=== PATIENT | male | born 1950 | race Caucasian/White ===

== ENCOUNTER 2018-07-17 06:49 | Inpatient (IN) | payer MEDICARE ==
[2018-07-17] MEDS ORDERED: Heparin for STEMI(*) 5,000 UNITS/ML 1 ML VIAL IV ONE (07:15)
[2018-07-17] MEDS ORDERED: Ticagrelor* 90 MG TAB PO ONE (07:15)
[2018-07-17] MEDS ORDERED: nitroGLYCERIN DRIP* 25,000 MCG/250 ML BTL ONE (07:20)
[2018-07-17] MEDS ORDERED: Lidocaine 1% INJ* 10 MG/ML 30 ML SDV ONE (07:20)
[2018-07-17] MEDS ORDERED: Heparin 2 UNITS/ML IVPREMIX* 2,000 ML IV ONE (07:20)
[2018-07-17] MEDS ORDERED: VERAPAMIL 2.5 MG/ML 2 ML VIAL ** 5 mg/2 ml ONE (07:20)
[2018-07-17] MEDS ORDERED: Iohexol 350 (CONTRAST) 200 ML MDV IV ONE ×2 (07:20→08:38)
[2018-07-17] MEDS ORDERED: Heparin(*) 1000 UNIT/ML 10 ML VIAL CATH LAB IV ONE (07:20)
[2018-07-17 07:42] LABS: ABS Basophils 0.1 10^3/ul (0-0.2); ABS Eosinophils 0.2 10^3/ul (0-0.6); ABS Lymphocytes 2.1 10^3/ul (1.0-4.8); ABS Monocytes 0.7 10^3/ul (0-0.8); ABS Neutrophils 6.4 10^3/ul (1.5-7.7); ABS Nucleated RBC 0 10^3/ul; Eosinophil % 1.6 %; Hematocrit 46 % (42-52); Hemoglobin 15.6 g/dl (14.0-18.0); Lymphocyte % 21.8 %; Mean Corpuscular HGB Conc 34 g/dl (31-36); Mean Corpuscular Hemoglobin 33 pg (27-31); Mean Corpuscular Volume 97 fL (80-94); Mean Platelet Volume 7.2 fL (7.4-10.4); Nucleated Red Blood Cells % 0.1; Platelet Count 317 10^3/ul (150-450); Red Blood Count 4.71 10^6/ul (4.00-5.40); Red Cell Distribution Width 14 % (10.5-15); White Blood Count 9.4 10^3/ul (3.5-10.8)
[2018-07-17] MEDS ORDERED: Midazolam* 1 MG/ML 10 ML VIAL (10 MG) ONE (07:47)
[2018-07-17 07:48] LABS: Activated Partial Thrombo Time 29.4 seconds (26.0-36.3); INR 0.89 (0.77-1.02)
[2018-07-17] MEDS ORDERED: Bivalirudin(*) 250 MG VIAL ONE (07:54)
[2018-07-17 07:59] LABS: Albumin/Globulin Ratio 1.3 (1-3); Globulin 3.1 g/dL (2-4); Magnesium 1.9 mg/dL (1.9-2.7); Potassium 3.8 mmol/L (3.5-5.0); Total Bilirubin 0.4 mg/dL (0.2-1.0); Total Protein 7.1 g/dL (6.4-8.9)
[2018-07-17] MEDS ORDERED: Acetaminophen TAB* 325 MG PO PRN (09:17)
[2018-07-17] MEDS ORDERED: Docusate CAP* 100 MG PO PRN (09:17)
[2018-07-17] MEDS ORDERED: Ondansetron INJ* 2 MG/ML VIAL IV PRN (09:17)
[2018-07-17] MEDS ORDERED: Nitroglycerin TAB 0.4 MG* 0.4 MG TAB SL PRN (09:17)
[2018-07-17] MEDS ORDERED: Zolpidem TAB* 5 MG PO PRN (09:17)
[2018-07-17] MEDS ORDERED: NS 0.9% 1000 ML* 400 ML IV SCH (09:30)
[2018-07-17] MEDS ORDERED: Atorvastatin* 80 MG TAB PO ONE (09:30)
[2018-07-17] MEDS: Metoprolol Tartrate TAB* 25 MG PO SCH ×2 (09:59→21:14)
--- NOTE | 2018-07-17 10:44 | ED ---
HPI Chest Pain - HPI Summary HPI Summary: Patient is a 68yo M No significant cardiac history presenting to the ED with left-sided intermittent chest pain radiating into the bilateral shoulders and back and right sided neck 4-5 days. He states he looked up his symptoms online and new he was having an MRI scan to the ED. In route to the hospital he was given 4 baby aspirin with all symptoms resolving so was not given a a dose of nitroglycerin. He endorses SOB with chest pain. He is describing as a "clenched fist sensation." He denies any fevers, sweats, chills. He denies any difficulty with urination. Symptoms are aggravated with nothing and alleviated by spontaneous resolution. Symptoms are worse at night, however not with lying flat. Patient is a heavy smoker. Family hx includes brother at 52 of second TN and mother had TN as well. - History of Current Complaint Chief Complaint: EDChestPainROMI Time Seen by Provider: 07/17/18 06:53 Hx Obtained From: Patient Onset/Duration: Started Hours Ago Timing: Constant Initial Severity: Moderate Current Severity: Moderate Pain Intensity: 1 Pain Scale Used: 0-10 Numeric Chest Pain Location: Left Anterior Chest Pain Radiates: Yes Chest Pain Radiates To:: Shoulder, Arm, Jaw, Neck Character: Crushing, Dull/Aching Aggravating Factor(s): Nothing Alleviating Factor(s): Spontaneous Resolution Associated Signs and Symptoms: Positive: Chest Pain, Shortness of Breath, Lightheadedness, Diaphoresis. Negative: Recent Stress, Headaches, Numbness, Nausea, Productive Cough, Nonproductive Cough, Calf Pain/Swelling - Risk Factors Pulmonary Embolism Risk Factors: Negative TAD Risk Factors: Negative AMI/ACS Risk Factors: Family History, Smoking - Additional Pertinent History Primary Care Physician: [id number] - Allergy/Home Medications Allergies/Adverse Reactions: Allergies Allergy/AdvReac Type Severity Reaction Status Date / Time Sulfa (Sulfonamide Allergy Unknown Verified 07/17/18 09:48 Antibiotics) Reaction Details Home Medications: Home Medications Budesonide/Formote 80/4.5(NF) [Symbicort 80/4.5 (NF)] 1 aer INH 07/17/18 [ History] PARoxetine HCL TAB* [Paxil TAB*] 40 mg PO DAILY 07/17/18 [History Confirmed ] PMH/Surg Hx/FS Hx/Imm Hx Previously Healthy: Yes - Or anemia Endocrine/Hematology History: Denies: Hx Diabetes, Hx Systemic Lupus Erythematosus Cardiovascular History: Denies: Hx Congestive Heart Failure, Hx Hypertension Respiratory History: Reports: Hx Asthma - exercise or work triggered GI History: Reports: Hx Gastroesophageal Reflux Disease, Hx Hiatal Hernia, Hx Ulcer History: Reports: Hx Benign Prostatic Hyperplasia Denies: Hx Renal Disease Psychiatric History: Reports: Hx Depression - Cancer History Hx Chemotherapy: No - Surgical History Surgery Procedure, Year, and Place: appendectomy. turbinatectomy. hemorrectomy - Immunization History Date of Tetanus Vaccine: unknown Date of Influenza Vaccine: unknown Infectious Disease History: No Infectious Disease History: Reports: Hx of Known/Suspected MRSA - wound on leg Denies: Hx Clostridium Difficile, Hx Hepatitis, Hx Human Immunodeficiency Virus (HIV), Traveled Outside the [place] in Last 30 Days - Family History Known Family History: Positive: Hypertension - Social History Occupation: Unemployed Lives: Alone Alcohol Use: Occasionally Alcohol Amount: previous ETOH abuse Hx Substance Use: Yes Substance Use Type: Reports: Marijuana Hx Tobacco Use: Yes Smoking Status (MU): Heavy Every Day Tobacco Smoker Type: Cigarettes Amount Used/How Often: 1/2 PPD Length of Time of Smoking/Using Tobacco: 20+ years Have You Smoked in the Last Year: Yes Review of Systems Constitutional: Negative Negative: Fever, Chills, Fatigue, Skin Diaphoresis Positive: Chest Pain. Negative: Palpitations Negative: Shortness Of Breath, Cough Genitourinary: Negative Positive: no symptoms reported, see HPI Negative: Arthralgia, Myalgia Skin: Negative All Other Systems Reviewed And Are Negative: Yes Physical Exam Triage Information Reviewed: Yes Vital Signs On Initial Exam: Initial Vitals Temp Pulse Resp BP Pulse Ox 98.3 F 63 20 149/97 99 07/17/18 06:52 07/17/18 06:52 07/17/18 06:52 07/17/18 06:52 07/17/18 06:52 Vital Signs Reviewed: Yes Appearance: Positive: No Pain Distress Skin: Positive: Warm, Skin Color Reflects Adequate Perfusion Head/Face: Positive: Normal Head/Face Inspection Eyes: Positive: EOMI, Conjunctiva Clear Neck: Positive: Supple Respiratory/Lung Sounds: Positive: Clear to Auscultation, Breath Sounds Present Cardiovascular: Positive: Tachycardia. Negative: Leg Edema Left, Leg Edema Right Musculoskeletal: Positive: Normal, Strength/ROM Intact Neurological: Positive: Speech Normal AVPU Assessment: Alert Diagnostics - Vital Signs Vital Signs Temp Pulse Resp BP Pulse Ox 07/17/18 09:16 71 10 97 07/17/18 09:15 98.5 F 59 17 138/77 97 07/17/18 07:45 98 F 74 18 146/94 98 07/17/18 07:35 98 F 74 18 145/81 95 07/17/18 07:32 72 13 145/81 97 07/17/18 07:02 64 148/91 98 07/17/18 06:52 98.3 F 63 20 149/97 99 - Laboratory Lab Results: Lab Results 07/17/18 07/17/18 07/17/18 Range/Units 07:20 07:20 07:20 WBC 9.4 (3.5-10.8) 10^3/ul RBC 4.71 (4.00-5.40) 10^6/ul Hgb 15.6 (14.0-18.0) g/dl Hct 46 (42-52) % MCV 97 H (80-94) fL MCH 33 H (27-31) pg MCHC 34 (31-36) g/dl RDW 14 (10.5-15) % Plt Count 317 (150-450) 10^3/ul MPV 7.2 L (7.4-10.4) fL Neut % (Auto) 67.6 % Lymph % (Auto) 21.8 % Crowley % (Auto) 7.7 % Eos % (Auto) 1.6 % Baso % (Auto) 1.3 % Absolute Neuts (auto) 6.4 (1.5-7.7) 10^3/ul Absolute Lymphs (auto) 2.1 (1.0-4.8) 10^3/ul Absolute Monos (auto) 0.7 (0-0.8) 10^3/ul Absolute Eos (auto) 0.2 (0-0.6) 10^3/ul Absolute Basos (auto) 0.1 (0-0.2) 10^3/ul Absolute Nucleated RBC 0 10^3/ul Nucleated RBC % 0.1 INR (Anticoag Therapy) 0.89 (0.77-1.02) APTT 29.4 (26.0-36.3) seconds POC Activ Clotting Time seconds Sodium 139 (135-145) mmol/L Potassium 3.8 (3.5-5.0) mmol/L Chloride 106 (101-111) mmol/L Carbon Dioxide 24 (22-32) mmol/L Anion Gap 9 (2-11) mmol/L BUN 15 (6-24) mg/dL Creatinine 0.75 (0.67-1.17) mg/dL Est GFR ( Amer) 124.6 (>60) Est GFR (Non-Af Amer) 103.0 (>60) BUN/Creatinine Ratio 20.0 (8-20) Glucose 128 H (70-100) mg/dL Lactic Acid (0.5-2.0) mmol/L Calcium 10.0 (8.6-10.3) mg/dL Magnesium 1.9 (1.9-2.7) mg/dL Total Bilirubin 0.40 (0.2-1.0) mg/dL AST 24 (13-39) U/L ALT 15 (7-52) U/L Alkaline Phosphatase 73 (34-104) U/L Total Creatine Kinase 133 (10-223) U/L CK-MB (CK-2) 5.3 (0.6-6.3) ng/mL Myoglobin 49.0 (17.4-105.7) ng/mL Troponin I 0.14 H* (<0.04) ng/mL B-Natriuretic Peptide (<=100) pg/mL Total Protein 7.1 (6.4-8.9) g/dL Albumin 4.0 (3.2-5.2) g/dL Globulin 3.1 (2-4) g/dL Albumin/Globulin Ratio 1.3 (1-3) LDL Cholesterol Direct 121 mg/dL Blood Type Antibody Screen 07/17/18 07/17/18 07/17/18 Range/Units 07:20 07:20 07:20 WBC (3.5-10.8) 10^3/ul RBC (4.00-5.40) 10^6/ul Hgb (14.0-18.0) g/dl Hct (42-52) % MCV (80-94) fL MCH (27-31) pg MCHC (31-36) g/dl RDW (10.5-15) % Plt Count (150-450) 10^3/ul MPV (7.4-10.4) fL Neut % (Auto) % Lymph % (Auto) % Crowley % (Auto) % Eos % (Auto) % Baso % (Auto) % Absolute Neuts (auto) (1.5-7.7) 10^3/ul Absolute Lymphs (auto) (1.0-4.8) 10^3/ul Absolute Monos (auto) (0-0.8) 10^3/ul Absolute Eos (auto) (0-0.6) 10^3/ul Absolute Basos (auto) (0-0.2) 10^3/ul Absolute Nucleated RBC 10^3/ul Nucleated RBC % INR (Anticoag Therapy) (0.77-1.02) APTT (26.0-36.3) seconds POC Activ Clotting Time seconds Sodium (135-145) mmol/L Potassium (3.5-5.0) mmol/L Chloride (101-111) mmol/L Carbon Dioxide (22-32) mmol/L Anion Gap (2-11) mmol/L BUN (6-24) mg/dL Creatinine (0.67-1.17) mg/dL Est GFR ( Amer) (>60) Est GFR (Non-Af Amer) (>60) BUN/Creatinine Ratio (8-20) Glucose (70-100) mg/dL Lactic Acid 1.9 (0.5-2.0) mmol/L Calcium (8.6-10.3) mg/dL Magnesium (1.9-2.7) mg/dL Total Bilirubin (0.2-1.0) mg/dL AST (13-39) U/L ALT (7-52) U/L Alkaline Phosphatase (34-104) U/L Total Creatine Kinase (10-223) U/L CK-MB (CK-2) (0.6-6.3) ng/mL Myoglobin (17.4-105.7) ng/mL Troponin I (<0.04) ng/mL B-Natriuretic Peptide 145 H (<=100) pg/mL Total Protein (6.4-8.9) g/dL Albumin (3.2-5.2) g/dL Globulin (2-4) g/dL Albumin/Globulin Ratio (1-3) LDL Cholesterol Direct mg/dL Blood Type O Positive Antibody Screen Negative 07/17/18 Range/Units 07:54 WBC (3.5-10.8) 10^3/ul RBC (4.00-5.40) 10^6/ul Hgb (14.0-18.0) g/dl Hct (42-52) % MCV (80-94) fL MCH (27-31) pg MCHC (31-36) g/dl RDW (10.5-15) % Plt Count (150-450) 10^3/ul MPV (7.4-10.4) fL Neut % (Auto) % Lymph % (Auto) % Crowley % (Auto) % Eos % (Auto) % Baso % (Auto) % Absolute Neuts (auto) (1.5-7.7) 10^3/ul Absolute Lymphs (auto) (1.0-4.8) 10^3/ul Absolute Monos (auto) (0-0.8) 10^3/ul Absolute Eos (auto) (0-0.6) 10^3/ul Absolute Basos (auto) (0-0.2) 10^3/ul Absolute Nucleated RBC 10^3/ul Nucleated RBC % INR (Anticoag Therapy) (0.77-1.02) APTT (26.0-36.3) seconds POC Activ Clotting Time 188 seconds Sodium (135-145) mmol/L Potassium (3.5-5.0) mmol/L Chloride (101-111) mmol/L Carbon Dioxide (22-32) mmol/L Anion Gap (2-11) mmol/L BUN (6-24) mg/dL Creatinine (0.67-1.17) mg/dL Est GFR ( Amer) (>60) Est GFR (Non-Af Amer) (>60) BUN/Creatinine Ratio (8-20) Glucose (70-100) mg/dL Lactic Acid (0.5-2.0) mmol/L Calcium (8.6-10.3) mg/dL Magnesium (1.9-2.7) mg/dL Total Bilirubin (0.2-1.0) mg/dL AST (13-39) U/L ALT (7-52) U/L Alkaline Phosphatase (34-104) U/L Total Creatine Kinase (10-223) U/L CK-MB (CK-2) (0.6-6.3) ng/mL Myoglobin (17.4-105.7) ng/mL Troponin I (<0.04) ng/mL B-Natriuretic Peptide (<=100) pg/mL Total Protein (6.4-8.9) g/dL Albumin (3.2-5.2) g/dL Globulin (2-4) g/dL Albumin/Globulin Ratio (1-3) LDL Cholesterol Direct mg/dL Blood Type Antibody Screen Result Diagrams: 07/17/18 07:20 07/17/18 07:20 Lab Statement: Any lab studies that have been ordered have been reviewed, and results considered in the medical decision making process. Chest Pain Course/Dx - Course Course Of Treatment: During the course treatment, the patient's evaluated for left-sided anterior chest pain radiating into the bilateral shoulders and right side of the neck. He denies any headache. He endorses some SOB while having chest pains. Chest hasn't been intermittent for 4-5 days. Symptoms are alleviated with spontaneous resolution and aggravated by nothing. Symptoms are not worse or better with lying flat or sitting upright. He has not taken any medications at home for relief. He states last evening symptoms worsen so he decided to call the ambulance. He was given 4 baby aspirin in the ambulance. On arrival, EKG was performed immediately on arrival which showed ST depressions in the anterolateral leads. STEMI called. Patient was ordered heparin and brillinta. He was take to the [facility] i laborer within 15 minutes of STEMI. CC time [address] Alcantar spoke with Dr. Briceno via phone. - Chest Pain Differential Diagnosis/HQI/PQRI: Acute TN, Angina, Chest Wall - Diagnoses Provider Diagnoses: ST segment depression - Critical Care Time Critical Care Time: 30-74 min Discharge - Sign-Out/Discharge Documenting (check all that apply): Patient Departure - Discharge Plan Condition: Fair Disposition: ADMITTED TO OTHER HOSPITAL - Billing Disposition and Condition Condition: FAIR Disposition: Admitted to Other Hospital
[2018-07-17] MEDS: Pantoprazole TAB * 40 MG TAB PO SCH (14:20)
--- NOTE | 2018-07-17 14:24 | HP ---
AMENDED REPORT NOW INCLUDES DESIGNATED COSIGNER HISTORY AND PHYSICAL: DATE OF ADMISSION: 07/17/18 ATTENDING PHYSICIAN: Dr. Dewayne Briceno * (dictated by Didi Munguia NP) CHIEF COMPLAINT: Progressive chest tightness, radiating into neck, jaw and scapular region for the intermittently past 5 days. HISTORY OF PRESENT ILLNESS: This is a pleasant 68-year-old gentleman with a notable history of depression, gastric reflux, BPH, who presented to the emergency department early this morning due progressive complaints of intermittent substernal chest pressure radiating to his left arm, shoulder, and neck for the past 5 days.He also reports exercise intolerance for the past 1-2 months. According to the patient, he has had increased episodes the past 24 hours, in fact he states that he has had 5 episodes since last night. The most recent episode was progressive and ongoing for 2-3 hours prior to presentation, subsequently he called 911 and was transferred to [facility] [place] [facility]. While being evaluated in the emergency department, EKG was obtained, which revealed normal sinus rhythm, rate [address] segment up slopping anterolaterally, significant ST segment depression suggestive of acute posterior ID, subsequently code heart was called. The patient was urgently taken to the label printer by Dr. Dewayne Briceno. Basic blood work was obtained in the emergency department. Troponin was 0.14. The patient was given IV heparin, p.o. Brilinta and aspirin therapy. He underwent successful drug eluting stent placement to RCA and circumflex and is currently resting in the ICU and offers no complaints.He denies palpitations, syncope, sob, stern, edema. no prevokable or relieving factors. PAST MEDICAL HISTORY: 1. BPH. 2. Depression. 3. GERD. PAST SURGICAL HISTORY: 1. Hemorrhoidectomy. 2. Left hernia repair. 3. Appendectomy. HOME MEDICATIONS: 1. Paroxetine 40 mg a day. 2. Omeprazole 40 mg a day. ALLERGIES: SULFA, which reportedly caused anaphylaxis. FAMILY HISTORY: Noncontributory. SOCIAL HISTORY: The patient is a retired [employer]. He lives home alone. He consumes a half pack of tobacco a day for the last 20 years. He reportedly smokes marijuana once or twice a week. He consumes 1 to 2 beers a day. Denies other illegal drug use. He lives a fairly active lifestyle, apparently he rides his bike twice a week and will walk to [facility] weekly. REVIEW OF SYSTEMS: All systems had been reviewed and otherwise negative except as mentioned in the HPI. PHYSICAL EXAMINATION GENERAL: The patient is resting in bed comfortably, offers no complaints, appears in no apparent distress. He is well-nourished and cooperative with exam. VITAL SIGNS: Temperature 98, pulse 74, respirations 18, oxygenation 98% on 2 L nasal cannula. Blood pressure currently 146/94. HEENT: Head is atraumatic, normocephalic, oral mucosa is moist. Tongue is midline. NECK: Supple. No thyromegaly. No JVD. LUNGS: Auscultated anteriorly. No evidence of adventitious breath sounds auscultated. Respirations unlabored. CARDIAC: Normal S1, S2. Regular rate and rhythm. No murmur, rub or gallop noted. /GI: Abdomen is soft, nontender, nondistended. No hepatomegaly. Normal active bowel sounds x4. EXTREMITIES: No pedal edema, no clubbing, no cyanosis. PERIPHERAL VASCULAR: +3 brachial and dorsalis pedis pulses palpable bilaterally and symmetrically. SKIN: Appears intact. The right groin has access site from left heart catheterization in place, nontender to palpation. DIAGNOSTIC STUDIES/LAB DATA: White count 9.4, hemoglobin 15.6, hematocrit 46, platelets 317. Sodium 139, potassium 3.8, chloride 106, carbon dioxide 24, BUN 16, creatinine 0.75, glucose 128, troponin #1 was 0.14, LDL 121. Chest x-ray 07/17/18, demonstrate hyperinflation, although no active cardiopulmonary disease. EKG from 6:52 a.m., 07/17/18, revealed normal sinus rhythm with left anterior fascicular block, ST segment depression in anterolateral leads suggestive of posterior infarct. ASSESSMENT AND PLAN: 1. Acute posterior myocardial infarction status post drug-eluting stent to right coronary artery and circumflex with known residual LAD lesion, which will need staged intervention. The patient reports 1 to 2 month history of exercise intolerance with progressive substernal chest pressure occurring at rest the last 5 days; however, last night, he apparently had frequent episodes that were prolonged in nature and refractory, thus he presented to the emergency department. Troponin initially 0.14, we will cycle isoenzymes. He will need an echocardiogram to assess LVEF. We will continue aspirin, Brilinta, high intensity statin therapy and bblocker therapy. We will monitor in the ICU at this current time on continuous telemetry and follow closely. 2. Newly diagnosed coronary artery disease, on aspirin and Brilinta. We will initiate high intensity statin and beta-blockade therapy. He is asymptomatic at this current time. 3. History of hyperlipidemia. LDL 121, goal is less than 70 given above #1 presentation. He is started on Lipitor 80 mg p.o. q.h.s. He will need repeat fasting lipid pane and liver function test in 6 to 8 weeks. 4. History of ongoing tobacco abuse. Discussed the importance of smoking cessation for overall cardiovascular health benefits. This will be addressed prior to discharge. 5. History of gastric reflux, on omeprazole therapy. We will continue to give initiation of DAPT therapy for above #1. 6. Disposition, pending course. The patient is full code. He is to be admitted to the ICU on continuous telemetry monitoring. We will check echo to asses LVEF. He will need eventual staged intervention to LAD. He is currently asymptomatic and hemodynamically stable. Dr. Dewayne Briceno agreed with the above assessment and plan. DIDI MUNGUIA NP [id number]/[facility] #: [id number] PRACHI
[2018-07-17] MEDS: Mometasone/Formoter 100/5 MDI INH SCH (19:32)
[2018-07-17] MEDS: Atorvastatin* 80 MG TAB PO SCH (21:13)
[2018-07-17] MEDS: Ticagrelor* 90 MG TAB PO SCH (21:13)
[2018-07-18 05:00] LABS: ABS Basophils 0.1 10^3/ul (0-0.2); ABS Eosinophils 0.2 10^3/ul (0-0.6); ABS Lymphocytes 2.3 10^3/ul (1.0-4.8); ABS Monocytes 1.1 10^3/ul (0-0.8); ABS Neutrophils 8.3 10^3/ul (1.5-7.7); ABS Nucleated RBC 0 10^3/ul; Eosinophil % 1.5 %; Hematocrit 43 % (42-52); Hemoglobin 14.4 g/dl (14.0-18.0); Lymphocyte % 19.1 %; Mean Corpuscular HGB Conc 33 g/dl (31-36); Mean Corpuscular Hemoglobin 33 pg (27-31); Mean Corpuscular Volume 99 fL (80-94); Mean Platelet Volume 7.1 fL (7.4-10.4); Nucleated Red Blood Cells % 0; Platelet Count 286 10^3/ul (150-450); Red Blood Count 4.35 10^6/ul (4.00-5.40); Red Cell Distribution Width 14 % (10.5-15)
[2018-07-18 05:16] LABS: Albumin 3.5 g/dL (3.2-5.2); Albumin/Globulin Ratio 1.3 (1-3); BUN/Creatinine Ratio 19.7 (8-20); Calcium 9.1 mg/dL (8.6-10.3); EGFR Non-African American 109.7 (>60); Globulin 2.6 g/dL (2-4); HDL Cholesterol 40.5 mg/dL; Potassium 3.9 mmol/L (3.5-5.0); Total Protein 6.1 g/dL (6.4-8.9)
[2018-07-18] MEDS: Metoprolol Tartrate TAB* 25 MG PO SCH ×2 (09:33→20:36)
[2018-07-18] MEDS: Aspirin 81 mg CHEW TAB* 81 MG TAB.CHEW PO SCH (09:33)
[2018-07-18] MEDS: Mometasone/Formoter 100/5 MDI INH SCH ×2 (09:35→19:10)
[2018-07-18] MEDS: PARoxetine HCL TAB* 40 MG PO SCH (09:36)
[2018-07-18] MEDS: Pantoprazole TAB * 40 MG TAB PO SCH (09:36)
[2018-07-18] MEDS: Ticagrelor* 90 MG TAB PO SCH ×2 (09:37→20:36)
--- NOTE | 2018-07-18 12:26 | CATH ---
CC: Dr. Davonte García [facility] CARDIAC CATHETERIZATION REPORT: DATE OF PROCEDURE: 07/17/18 INDICATIONS FOR PROCEDURE: The patient presents with suggestive evidence of an acute ST-segment elevation posterior wall myocardial infarction with continued chest discomfort over the past 3-1/2 hours. The procedure was coronary arteriography, primary stenting of the proximal circumflex utilizing 2.75 x 16 mm long Synergy drug-eluting postdilated to 3.1 to 3.2 mm and employed primary stenting of distal right coronary artery utilizing a 2.75 x 12 mm long Synergy drug- eluting stent and primary stenting of the mid right coronary artery utilizing a 2.75 x 28 mm Synergy drug-eluting stent postdilated 2.8 to 2.9 mm. CONSENT: The patient was interviewed and examined in the emergency room where the risks and benefits were explained to the patient. He understood them and wished to proceed. PRE-CARDIAC CATHETERIZATION LABORATORY RESULTS: Blood tests were pending at the time of the interview with the patient in the emergency room. In the labor relations consultant, laboratory results came back, hemoglobin and hematocrit of 15.6 and 45 with a platelet count of 317,000. Sodium 139, potassium 3.8, chloride 106, bicarb 24, BUN and creatinine were 15 and 0.75. MEDICATIONS GIVEN DURING THE PROCEDURE: Of note, the patient received 4000 units of heparin in the emergency room with 180 mg of Brilinta and 325 mg of aspirin. Additional medications included an Angiomax bolus and an Angiomax drip started when ACT was found to be subtherapeutic, the patient received Versed a total of 1 mg. APPROACH TAKEN: The right femoral artery approach was chosen for an approach. EQUIPMENT UTILIZED: 1. Right femoral artery sheath 6.5 - curved Merit Prelude Sheath. 2. Diagnostic guidewire 175 length J-tip guidewire. 3. Diagnostic coronary catheters - 5-Nigerian 4-curve JR catheter and a 6-Nigerian VL 3.5 curve guide catheter. 4. The left heart catheterization catheter was a 5-Nigerian PIG tailed angled catheter. 5. Interventional guide catheters utilized included the 6-Nigerian VL 3.5 curve left coronary guide catheter, a 6-Nigerian Fr4 curve right coronary guide catheter. Stents utilized included the 2.75 x 16 mm long Synergy drug-eluting stent in the proximal circumflex, a 2.75 x 12 mm long Synergy drug-eluting stent in the distal right coronary artery and a 2.75 x 28 mm long Synergy drug- eluting stent in the mid right coronary artery. Postdeployment balloon inflation catheters - circumflex - 3.0 x 8 mm NC Emerge balloon, right coronary artery 2.75 x 8 mm NC Emerge balloon. DESCRIPTION OF PROCEDURE: The patient was brought in to the cardiovascular laboratory where a formal time-out was performed. The patient was prepped and draped in a sterile fashion. The right femoral artery was cannulated with an anterior wall only stick and the sheath was placed. A diagnostic imaging was performed followed by intervention into the proximal circumflex after ACT was checked and found to be subtherapeutic and an Angiomax bolus and drip were given. The 2.75 x 60 mm long stent was deployed and postdeployment balloon inflations were made utilizing the 3.0 x 8 mm long Emerge balloon after utilizing a 2.75 x 8 mm long balloon. Following this, attention was turned to the right coronary artery and primary stenting was performed to the distal lesion utilizing 2.75 x 12 mm long Synergy drug-eluting stent to high pressures and to the mid segment utilizing 2.75 x 28 mm long stent postdilated with a 2.75 x 8 mm long NC Emerge to high pressures. Following this, left heart catheterization was performed utilizing the 5-Nigerian pigtail catheter. Left ventriculography was deferred in light of the amount of contrast utilized and then echocardiogram was ordered for today. At the end of the case, a decision was made to suture the sheath and place for manual removal due to the fact that the right femoral artery was very superficial. The total contrast used was 200 cc Omnipaque dye. The radiation exposure included 15 minutes of fluoro time. The air kerma radiation was 2246 milligray. The DAP radiation was 13,730 microgray per meter square. RESULTS: HEMODYNAMIC DATA: Left heart catheterization - central aortic pressure was recorded at 137/70 with a mean of 98, left ventricular pressure 137/left ventricular end-diastolic pressure of 24. CORONARY ARTERIOGRAPHY: A. Right coronary artery - a dominant vessel supplying multiple acute marginal branches, a posterior descending artery and several posterior left ventricular branches. There was calcium seen throughout the proximal to mid segment of the vessel. There was mild 35% to 40% obstruction seen proximally. The vessel tapered from the proximal to mid segment and just prior to turning on to the inferior surface of the heart was a hazy 85% to 90% ulcerated lesion. Past this point, there was a 35% to 40% lesion followed by what appeared to be a more significant 70% distal right coronary artery. The caliber of the posterior left ventricular branches were small in nature. The PDA had minimal disease present. B. Left coronary artery: 1. Left main - short in nature and widely patent. 2. Left anterior descending artery - left anterior descending artery had calcification seen throughout the proximal and mid portion. There was luminal tapering in the proximal portion of 60% eccentric in nature. The mid portion of the vessel had a somewhat long segment of 80% to 85% stenosis encompassing the takeoff of a very small caliber diagonal branch. Past this point, the artery continued to the apical region and minimally on to the distal inferior wall. Of note, the area just as it turned on to the inferior surface was small in caliber and had a significant 85% lesion. This area is not one that intervention could be approached. The diagonal branches were somewhat small in caliber throughout with 55% to 60% narrowing in the second diagonal branch. It was small in caliber and clearly not an interventional vessel. 3. Circumflex artery - a nondominant vessel supplying a very thin first obtuse marginal branch followed by a larger second ending in a third bifurcating obtuse marginal branch. There was a critical proximal hazy lesion of 85% to 90% seen. Past this point at the take off of the ostium of the second obtuse marginal branch, there was a 45% to 50% narrowing and the continuation showed a narrowing of 35% to 40%. INTERVENTION INTO PROXIMAL CIRCUMFLEX ARTERY: A successful reduction of 85 to 90% hazy obstruction with primary stenting utilizing a 2.75 x 16 mm Synergy drug- eluting stent postdilated to 3.1 to 3.2 mm with JUAN CARLOS-3 flow, no dissection seen and a 10% residual narrowing noted. INTERVENTION INTO DISTAL RIGHT CORONARY ARTERY: Successful reduction of significant 70% lesion with primary stenting utilizing 2.75 x 12 mm long Synergy drug-eluting stent dilated to high pressures obtaining 2.8 mm. 0% residual stenosis. INTERVENTION INTO MID RIGHT CORONARY ARTERY: Successful reduction of an ulcerated critical 85% lesion with primary stenting utilizing 2.75 x 28 mm long Synergy drug- eluting stent postdilated 2.8 mm with JUAN CARLOS-3 flow, no dissection seen and 0% residual stenosis. OVERALL ASSESSMENT: Triple vessel disease involving mid LAD, mid and distal right coronary artery and proximal circumflex with culprit lesion most likely proximal circumflex given the EKG findings. Successful intervention to the circumflex and to the right coronary artery. The patient will undergo intervention into the mid left anterior descending artery during this hospitalization as long as he remains stable. Echocardiogram will be performed today to look at overall left ventricular systolic function. Dual antiplatelet therapy in addition to high dose statin therapy and beta-yonatan therapy and probable BEATRIZ inhibition therapy will be instituted as blood pressure tolerates. [id number]/[facility] #: [id number] MTDD
[2018-07-18] MEDS: Atorvastatin* 80 MG TAB PO SCH (20:35)
[2018-07-19 05:47] LABS: BUN/Creatinine Ratio 19.7 (8-20); Calcium 9.1 mg/dL (8.6-10.3); EGFR Non-African American 109.7 (>60); Potassium 3.7 mmol/L (3.5-5.0)
[2018-07-19] MEDS: Mometasone/Formoter 100/5 MDI INH SCH ×2 (08:11→20:32)
[2018-07-19] MEDS: Captopril TAB* 12.5 MG PO SCH ×3 (08:35→21:26)
[2018-07-19] MEDS: PARoxetine HCL TAB* 40 MG PO SCH (08:35)
[2018-07-19] MEDS: Aspirin 81 mg CHEW TAB* 81 MG TAB.CHEW PO SCH (08:36)
[2018-07-19] MEDS: Metoprolol Succinate XL TAB* 25 MG PO SCH (08:36)
[2018-07-19] MEDS: Ticagrelor* 90 MG TAB PO SCH ×2 (08:36→21:26)
[2018-07-19] MEDS: Pantoprazole TAB * 40 MG TAB PO SCH (08:36)
[2018-07-19] MEDS: Atorvastatin* 80 MG TAB PO SCH (21:26)
[2018-07-20 06:51] LABS: BUN/Creatinine Ratio 20.5 (8-20); Calcium 9.5 mg/dL (8.6-10.3); EGFR Non-African American 91.6 (>60); Potassium 3.8 mmol/L (3.5-5.0)
[2018-07-20] MEDS ORDERED: NS 0.9% 1000 ML* 1,000 ML IV SCH (07:30)
--- NOTE | 2018-07-20 08:28 | ECHO ---
Patient: GUILLERMINA CHAU [facility] Rec#: [id number] : 1950 Date: 07/20/2018 Age: 68y Height: 178 cm / 70.1 in Weight: 69.1 kg / 152.3 lbs Sex: M BSA: 1.86 Room#: 440 Admit Date#: 07/17/2018 Type: Inpatient Referring: Dewayne Briceno MD Reading: Tim Walters MD [employer] Apprentice: Emilee Cortes RDCS CC: Davonte García MD Transthoracic Echocardiogram Indication: S/P PCI, Myocardial Infarction BP: 131/89 HR: 76 Rhythm: NSR Findings History: STEMI (LAD and Circ.) 07/17/18, s/p PCI. Technical Comments: The study quality is fair. The study is technically limited due to poor parasternal windows. Completed at 0815. Left Ventricle: The left ventricular chamber size is normal. Mild concentric left ventricular hypertrophy is observed. There is a focal wall motion abnormality present. There is mildly decreased left ventricular systolic function. The estimated ejection fraction is 40-45%. There is no consistent Doppler evidence of clinically significant diastolic dysfunction. The mid inferolateral, mid inferior, apical lateral, and apical inferior wall segments are hypokinetic (score 2). Overall wallmotion score index is 2.00 Left Atrium: The left atrial chamber size is normal. Right Ventricle: Moderator Band present. The right ventricle is mildly dilated. The right ventricular global systolic function is normal. Right Atrium: The right atrial cavity size is normal. Aortic Valve: The aortic valve is trileaflet. The aortic valve leaflets are mildly thickened. There is no evidence of aortic regurgitation. There is no evidence of aortic stenosis. Mitral Valve: The mitral valve leaflets are mildly thickened. There is a trace of mitral regurgitation. There is no evidence of mitral stenosis. Tricuspid Valve: The tricuspid valve leaflets are normal. There is trace tricuspid regurgitation. Unable to estimate the right ventricular systolic pressure. There is no tricuspid stenosis. Pulmonic Valve: The pulmonic valve appears normal. There is a trace pulmonic regurgitation. There is no pulmonic stenosis. Pericardium: There is no significant pericardial effusion. Aorta: There is no dilatation of the ascending aorta. There is no dilatation of the aortic arch. There is mild dilatation of the aortic root. Pulmonary Artery: The main pulmonary artery appears normal. Venous: The inferior vena cava appears normal in size. There is a greater than 50% respiratory change in the inferior vena cava dimension. Conclusions Mild concentric left ventricular hypertrophy is observed. There is mildly decreased left ventricular systolic function. The estimated ejection fraction is 40-45%. The mid inferolateral, mid inferior, apical lateral, and apical inferior wall segments are hypokinetic (score 2). The right ventricular global systolic function is normal. There is no evidence of aortic stenosis. There is a trace of mitral regurgitation. There is trace tricuspid regurgitation. Unable to estimate the right ventricular systolic pressure. There is no significant pericardial effusion. Compared to study of 07/17/18, the LV function is slightly better. The inferoposterior wall hypokinesis is slighlty better Measurements Name Value Normal Range RVIDd (AP) 2D 3.7 cm (0.9 - 2.6) RVDdMajor (2D) 4.5 cm (2.2 - 4.4) RAd ISD 4CH 4.6 cm (3.4 - 4.9) RA (A4C)W 3.5 cm (2.9 - 4.6) IVSd (2D) 1.1 cm (0.6 - 1) LVPWd (2D) 1.1 cm (0.6 - 1) LVIDd (2D) 5.1 cm (3.6 - 5.4) LVIDs (2D) 3.2 cm - LV FS (2D) 38 % (25 - 45) Aortic Annulus 2.3 cm (1.4 - 2.6) Ao root diameter (2D) 3.7 cm (2.1 - 3.5) Ascending Ao 3.4 cm (2.1 - 3.4) Aortic arch 2.8 cm (1.8 - 3.4) LA dimension (AP) 2D 3.6 cm (2.3 - 3.8) LAd ISD 4CH 4.9 cm (2.9 - 5.3) LA ISD 4CH W 4.1 cm (2.5 - 4.5) Name Value Normal Range LA ESV BP (A/L) index 29 ml/m2 - Name Value Normal Range MV E-wave Vmax 0.56 m/sec - MV deceleration time 285 msec - MV A-wave Vmax 0.59 m/sec - MV E:A ratio 1.2 ratio - LV septal e' Vmax 0.06 m/sec - LV lateral e' Vmax 0.1 m/sec - LV E:e' septal ratio 9.3 ratio - LV E:e' lateral ratio 5.6 ratio - Name Value Normal Range AV Vmax 1.1 m/sec - AV VTI 22 cm - AV peak gradient 5 mmHg - AV mean gradient 2 mmHg - LVOT Vmax 0.9 m/sec - LVOT VTI 17 cm - LVOT peak gradient 3 mmHg - LVOT mean gradient 1 mmHg - AYDIN Vmax 0.7 m/sec - Name Value Normal Range IVC diameter 2.1 cm - Name Value Normal Range PV Vmax 0.8 m/sec - PV peak gradient 3 mmHg - RI end-diastolic Vmax 0.9 m/sec - PA end-diastolic pressur3 mmHg - Wallmotion BAS Not Seen BA Not Seen BAL Not Seen SHENG Not Seen BI Not Seen BIS Not Seen MAS Not Seen MA Not Seen MAL Not Seen MIL Hypokinetic VA Hypokinetic MIS Not Seen Not Seen AA Not Seen AL Hypokinetic AI Hypokinetic APEX Not Seen
[2018-07-20] MEDS: Aspirin 81 mg CHEW TAB* 81 MG TAB.CHEW PO SCH (08:42)
[2018-07-20] MEDS: Captopril TAB* 12.5 MG PO SCH (08:42)
[2018-07-20] MEDS: PARoxetine HCL TAB* 40 MG PO SCH (08:43)
[2018-07-20] MEDS: Metoprolol Succinate XL TAB* 25 MG PO SCH (08:43)
[2018-07-20] MEDS: Ticagrelor* 90 MG TAB PO SCH (08:43)
[2018-07-20] MEDS: Pantoprazole TAB * 40 MG TAB PO SCH (08:43)
[2018-07-20] MEDS: Mometasone/Formoter 100/5 MDI INH SCH (08:50)
[2018-07-20 12:29] VITALS: BP 103/55
[2018-07-20] MEDS ORDERED: Lisinopril TAB* 5 MG PO SCH (13:00)
--- NOTE | 2018-07-20 14:32 | DS ---
DICTATION ENDS ABRUPTLY - PLEASE COMPLETE THIS DICTATION CC: [facility] in [place]; Dr. Arnulfo Greenwood; Dr. Peacock, [facility], Office Number [phone] * DISCHARGE SUMMARY: DATE OF ADMISSION: 07/17/18 DATE OF DISCHARGE: 07/20/18 PRIMARY CARE PHYSICIAN: [facility] in [place]. DISCHARGE DIAGNOSES: 1. Inferior wall ST-elevation infarct. 2. Benign prostatic hyperplasia. 3. Depression. 4. Gastroesophageal reflux disease. 5. SULFA allergy with anaphylaxis. CONDITION ON DISCHARGE: Stable. PROCEDURE: Cardiac cath; stent placement, right femoral approach, Dr. Briceno, 2.75 x 24 Synergy drug-eluting stent at the acute margin post dilated to 3 to 3.2 mm, a somewhat more distal 2.75 x 12 Synergy drug-eluting stent, and 2.75 x 16 Synergy drug-eluting stent in the proximal circumflex. Mid LAD was noted to have a long diffuse heavily calcified lesion up to 80%. After review, my recommendation is for revascularization of that lesion to be performed at a site that has orbital or rotational atherectomy in order to maximize MLD post stenting. DISCHARGE MEDICATIONS: Continued: 1. Paroxetine 40 mg daily. 2. Omeprazole 40 mg daily. New medications: 1. Aspirin 81 mg daily. 2. Lipitor 80 mg daily. 3. Lisinopril 5 mg daily. 4. Toprol-XL 25 mg daily. 5. Nitroglycerin 0.4 sublingual p.r.n. 6. Brilinta 90 mg b.i.d. for a minimum of 1 year without interruption. FOLLOWUP: He will have staged LAD intervention with Dr. Peacock at [facility], to be arranged. The patient has all the relevant phone numbers, contact has been made. He subsequently will follow up with Dr. Briceno for a wound check and arrangements for long-term followup with primary cardiology. ACTIVITY: No strenuous exertion for 1 week. To walk 30 minutes daily. Shower only for 3 days. DIAGNOSTIC STUDIES/LAB DATA: His CBC remained stable, on 07/18/18, white count 12, hemoglobin 14.4, platelet count normal at 286,000. His troponin peaked at 1.75, CK- MB peaked at 14.5, all consistent with a small infarct. Echo: LVEF post stenting reported LVEF of 35% to 40% on 07/17/18. Repeat echo today showed improvement in LVEF to 40% to 45% on low-dose Toprol-XL and BEATRIZ inhibitor therapy. EKG today shows left axis, inferior Q-wave infarct with early right precordial transition consistent with posterior involvement, there is T-wave inversion in V6. HOSPITAL COURSE: He presented with an inferior wall ST-elevation infarct, underwent catheterization and stenting by Dr. Briceno as above. The LAD __ DICTATION ENDS ABRUPTLY [id number]/[facility] #: [id number] [facility]
== END 2018-07-20 16:11 | disposition home or self-care (01) | DRG 247 ==
LOC: ED 06:49 → CHICATH 07:40 → ICU 09:17 → MEDTELE 07-18 23:00
PROVIDERS: ADMIT Internal Medicine Cardiovascular Disease; ATTEND Internal Medicine Cardiovascular Disease
PROC: 4A023N7 Measurement of Cardiac Sampling and Pressure, Left Heart, Percutaneous Approach (ICD-10-PCS; 2018-07-17)
PROC: B2111ZZ Fluoroscopy of Multiple Coronary Arteries using Low Osmolar Contrast (ICD-10-PCS; 2018-07-17)
PROC: 027136Z Dilation of Coronary Artery, Two Arteries with Three Drug-eluting Intraluminal Devices, Percutaneous Approach (ICD-10-PCS; principal; 2018-07-17 08:00)
DX: I21.19 ST elevation (STEMI) myocardial infarction involving other coronary artery of inferior wall (principal); N40.0 Benign prostatic hyperplasia without lower urinary tract symptoms; F32.9 Major depressive disorder, single episode, unspecified; K21.9 Gastro-esophageal reflux disease without esophagitis; F17.210 Nicotine dependence, cigarettes, uncomplicated; I44.4 Left anterior fascicular block; I25.10 Atherosclerotic heart disease of native coronary artery without angina pectoris; E78.5 Hyperlipidemia, unspecified; J45.909 Unspecified asthma, uncomplicated; Z86.14 Personal history of Methicillin resistant Staphylococcus aureus infection; Z88.2 Allergy status to sulfonamides; Z82.49 Family history of ischemic heart disease and other diseases of the circulatory system; Z79.82 Long term (current) use of aspirin; Z90.89 Acquired absence of other organs
CPT/HCPCS: 36415; 71045; 80048; 80053; 80061; 82550; 82553; 83036; 83605; 83721; 83735; 83874; 83880; 84484; 85025; 85347; 85610; 85730; 86850; 86900; 86901; 87641; 90686; 93005; 93306; 94640; 99156; 99157; 99285; 99406; A9270-GY; C1725; C1769; C1876; C1887; C9601-RC; C9606-LC; J0583; J1644; J2250

== ENCOUNTER 2020-01-29 11:18 | Observation (INO) ==
[2020-01-29 11:52] LABS: ABS Basophils 0.1 10^3/ul (0-0.2); ABS Eosinophils 0.4 10^3/ul (0-0.6); ABS Monocytes 0.9 10^3/ul (0-0.8); ABS Neutrophils 5.5 10^3/ul (1.5-7.7); Eosinophil % 4.9 %; Hematocrit 34 % (42-52); Hemoglobin 11.8 g/dL (14.0-18.0); Lymphocyte % 22.2 %; Mean Corpuscular HGB Conc 34 g/dL (31-36); Mean Corpuscular Hemoglobin 33 pg (27-31); Mean Corpuscular Volume 95 fL (80-94); Platelet Count 298 10^3/uL (150-450); Red Blood Count 3.62 10^6 /uL (4.18-5.48); Red Cell Distribution Width 15 % (10-15)
[2020-01-29 12:13] LABS: Albumin 3.6 g/dL (3.2-5.2); Albumin/Globulin Ratio 1.6 (1-3); BUN/Creatinine Ratio 23.9 (8-20); Calcium 8.2 mg/dL (8.6-10.3); EGFR African American 132.3 (>60); EGFR Non-African American 109.4 (>60); Globulin 2.3 g/dL (2-4); Potassium 3.9 mmol/L (3.5-5.0); Total Bilirubin 0.4 mg/dL (0.2-1.0); Total Protein 5.9 g/dL (6.4-8.9)
[2020-01-29 15:13] LABS: Troponin I 0.03 ng/mL (<0.03)
[2020-01-29] MEDS: Enoxaparin 40 MG/0.4 ML SYR SUBCUT SCH (15:51)
[2020-01-29] MEDS ORDERED: Al Hydrox/Mg Hydrox/Simet LIQ 30 ML UDC PO PRN (15:58)
[2020-01-29 17:51] LABS: Troponin I 0.04 ng/mL (<0.03)
[2020-01-29 21:02] LABS: Troponin I 0.05 ng/mL (<0.03)
[2020-01-30] LABS: Troponin I 0.05 ng/mL (<0.03)
[2020-01-30 06:11] LABS: ABS Basophils 0.2 10^3/ul (0-0.2); ABS Eosinophils 0.4 10^3/ul (0-0.6); ABS Lymphocytes 2.3 10^3/ul (1.0-4.8); ABS Monocytes 0.8 10^3/ul (0-0.8); ABS Neutrophils 4.3 10^3/ul (1.5-7.7); Eosinophil % 4.9 %; Hematocrit 34 % (42-52); Hemoglobin 11.7 g/dL (14.0-18.0); Lymphocyte % 28.8 %; Mean Corpuscular HGB Conc 34 g/dL (31-36); Mean Corpuscular Hemoglobin 33 pg (27-31); Mean Corpuscular Volume 95 fL (80-94); Mean Platelet Volume 7.5 fL (7.4-10.4); Platelet Count 285 10^3/uL (150-450); Red Blood Count 3.61 10^6 /uL (4.18-5.48); Red Cell Distribution Width 15 % (10-15)
[2020-01-30 06:36] LABS: Troponin I 0.03 ng/mL (<0.03)
[2020-01-30 10:01] LABS: Anion Gap 6 mmol/L (2-11); BUN/Creatinine Ratio 23.4 (8-20); Blood Urea Nitrogen 15 mg/dL (6-24); CO2 Carbon Dioxide 26 mmol/L (22-32); Calcium 8.6 mg/dL (8.6-10.3); Chloride 105 mmol/L (101-111); EGFR African American 149.2 (>60); EGFR Non-African American 123.3 (>60); Glucose 124 mg/dL (70-100); Magnesium 1.8 mg/dL (1.9-2.7); Potassium 3.8 mmol/L (3.5-5.0); Sodium 137 mmol/L (135-145)
[2020-01-30] MEDS ORDERED: Potassium Chlor 20 meq TAB.ER PO ONE (12:28)
[2020-01-30] MEDS ORDERED: Magnesium Sulfate 2 gm BAG 2 GM/50 ML BAG IVPB ONE (12:28)
[2020-01-30] MEDS: Enoxaparin 40 MG/0.4 ML SYR SUBCUT SCH (12:42)
[2020-01-30 13:19] LABS: % Iron Saturation 33 % (15-55); Iron 110 ug/dL (50-212); Total Iron Binding Capacity 329 mcg/dL (250-450); Transferrin 235 mg/dL (203-362); Unsaturated Iron Binding < 314 ug/dL
[2020-01-30 13:42] LABS: Ferritin 25.1 ng/mL (24-336)
[2020-01-30 13:46] LABS: Folate 11.42 ng/mL (>3.99)
[2020-01-30 13:47] LABS: Vitamin B12 162 pg/mL (180-914)
[2020-01-31 06:43] LABS: ABS Eosinophils 0.3 10^3/ul (0-0.6); ABS Lymphocytes 2.7 10^3/ul (1.0-4.8); ABS Monocytes 0.8 10^3/ul (0-0.8); ABS Neutrophils 4.8 10^3/ul (1.5-7.7); Hematocrit 38 % (42-52); Hemoglobin 12.9 g/dL (14.0-18.0); Lymphocyte % 31.1 %; Mean Corpuscular HGB Conc 34 g/dL (31-36); Mean Corpuscular Hemoglobin 32 pg (27-31); Mean Corpuscular Volume 94 fL (80-94); Mean Platelet Volume 7.2 fL (7.4-10.4); Nucleated Red Blood Cells % 0.2; Platelet Count 302 10^3/uL (150-450); Red Blood Count 3.98 10^6 /uL (4.18-5.48); Red Cell Distribution Width 15 % (10-15); White Blood Count 8.6 10^3/uL (3.5-10.8)
[2020-01-31 06:55] LABS: INR 1.05 (0.82-1.09)
[2020-01-31 07:00] LABS: Albumin 3.7 g/dL (3.2-5.2); Albumin/Globulin Ratio 1.5 (1-3); BUN/Creatinine Ratio 20.9 (8-20); Calcium 8.6 mg/dL (8.6-10.3); EGFR African American 141.5 (>60); EGFR Non-African American 116.9 (>60); Globulin 2.4 g/dL (2-4); HDL Cholesterol 42.6 mg/dL; Magnesium 1.9 mg/dL (1.9-2.7); Potassium 3.9 mmol/L (3.5-5.0); Total Bilirubin 0.6 mg/dL (0.2-1.0); Total Protein 6.1 g/dL (6.4-8.9)
[2020-01-31] MEDS ORDERED: Regadenoson 0.4 MG/5 ML SYRINGE ONE (11:06)
[2020-01-31 16:19] VITALS: BP 102/58
[2020-01-31] MEDS: Enoxaparin 40 MG/0.4 ML SYR SUBCUT SCH (16:37)
== END 2020-01-31 16:35 | disposition home or self-care (01) ==
LOC: MEDTELE 11:18 → ED 11:18 → MEDTELE 14:30
PROVIDERS: ADMIT Internal Medicine; ATTEND Student in an Organized Health Care Education/Training Program